=== PATIENT | female | born 1995 | race Caucasian/White ===

== ENCOUNTER 2021-03-10 13:45 | Outpatient (CLI) | payer OTHER | END 2021-03-10 16:22 | disposition home or self-care (01) | LOC: GENOP 13:45 | DX: O10.913 Unspecified pre-existing hypertension complicating pregnancy, third trimester (principal); Z3A.32 32 weeks gestation of pregnancy | CPT/HCPCS: 81001 ==

== ENCOUNTER 2021-03-26 09:13 | Outpatient (CLI) | payer OTHER | END 2021-03-26 09:55 | disposition home or self-care (01) | LOC: GENOP 09:13 | DX: I10 Essential (primary) hypertension (principal) | CPT/HCPCS: 59025 ==

== ENCOUNTER 2021-04-15 16:58 | Inpatient (IN) | payer OTHER ==
[~2021-04-15] VITALS: Ht 162.6 cm; Wt 91.2 kg
[2021-04-15 17:34] LABS: HEMOGLOBIN 10.5 gm/dl (12.3-15.3); RED BLOOD COUNT 3.72 M/UL (4.00-5.10); WHITE BLOOD COUNT 11.3 K/UL (4.5-11.0)
[2021-04-15] MEDS ORDERED: LABETALOL HCL100 MG PO (18:23)
[2021-04-16] MEDS ORDERED: HYDROCODON-ACE1 EAC4 PO (23:17)
[2021-04-16] MEDS ORDERED: COLACE100 MG PO (23:17)
[2021-04-16] MEDS ORDERED: IBU600 MG PO (23:17)
[2021-04-17 06:09] LABS: HEMOGLOBIN 10.1 gm/dl (12.3-15.3)
== END 2021-04-18 16:41 | disposition home or self-care (01) | DRG 807 ==
LOC: GENOP 16:58 → OB 17:09
PROVIDERS: Obstetrics & Gynecology; ADMIT Obstetrics & Gynecology
PROC: 4A1HXCZ Monitoring of Products of Conception, Cardiac Rate, External Approach (ICD-10-PCS; 2021-04-15)
PROC: 10E0XZZ Delivery of Products of Conception, External Approach (ICD-10-PCS; principal; 2021-04-16)
PROC: 10907ZC Drainage of Amniotic Fluid, Therapeutic from Products of Conception, Via Natural or Artificial Opening (ICD-10-PCS; 2021-04-16)
PROC: 0HQ9XZZ Repair Perineum Skin, External Approach (ICD-10-PCS; 2021-04-16)
DX: O10.92 Unspecified pre-existing hypertension complicating childbirth (principal); Z37.0 Single live birth; Z3A.37 37 weeks gestation of pregnancy; Z20.822 Contact with and (suspected) exposure to COVID-19; Z91.018 Allergy to other foods; O70.0 First degree perineal laceration during delivery
CPT/HCPCS: 36415; 81001; 82800; 85014; 85018; 85025; 90715; C9113; J2405; J2590; J7120; U0002